=== PATIENT | female | born 1935 ===

== ENCOUNTER 2017-08-17 10:14 | Outpatient (CLI) | payer OTHER ==
[~2017-08-17 10:14] MED LIST: ANTIVERT12.5 MG; ATIVAN1 MG PO; BACLOFEN10 MG PO; COZAAR25 MG; DICLOFENAC SODI25 MG PO; FAMOTIDINE20 MG PO; GABAPENTIN600 MG PO; HUMALOG MIX 75/10 ML SUBCUTANEO; HUMULIN 70/30 PE3 ML; ISORDIL5 MG; LEVOTHYROXINE75 MCG PO; LIDODERM30 EA TP; LOTRISONE CREAM45 GM TP; Lantus 1000 U/10 ML SUBCUTANEO; NORVASC2.5 M1 PO; PLAVIX75 MG; PLETAL50 MG; PRAVACHOL10 MG; SYNTHROID50 MCG; TRAM1TAB98 PO; TRAMADOL HCL-AP1 TAB PO; [UNRECOGNIZED DRUG - CODE]
== END 2017-08-17 10:19 | disposition home or self-care (01) ==
LOC: RAD 10:14
DX: S09.90XA Unspecified injury of head, initial encounter (principal); M54.2 Cervicalgia; M54.5 Low back pain

== ENCOUNTER 2018-01-16 09:41 | Outpatient (CLI) | payer OTHER | END 2018-01-16 14:52 | disposition home or self-care (01) | LOC: RAD 09:41 | DX: I50.9 Heart failure, unspecified (principal) ==

== ENCOUNTER 2018-09-21 17:47 | Emergency (ER) | payer OTHER ==
[~2018-09-21] VITALS: Ht 160 cm; Wt 81.6 kg
== END 2018-09-22 11:16 | disposition designated cancer center or children's hospital (05) ==
LOC: ER 17:47 → CPU-OBS 18:19 → ER 09-22 11:16
DX: I44.2 Atrioventricular block, complete (principal); I11.9 Hypertensive heart disease without heart failure; I25.10 Atherosclerotic heart disease of native coronary artery without angina pectoris; E11.9 Type 2 diabetes mellitus without complications; R00.1 Bradycardia, unspecified; Z95.4 Presence of other heart-valve replacement

== ENCOUNTER → 2019-01-20 | Outpatient (CLI) | payer OTHER | END | disposition home or self-care (01) | LOC: RAD 09:38 | DX: M25.551 Pain in right hip (principal) ==

== ENCOUNTER 2019-01-31 08:31 | Outpatient (CLI) | payer OTHER | END 2019-01-31 08:40 | disposition home or self-care (01) | LOC: TOM 08:31 | DX: R10.9 Unspecified abdominal pain (principal) ==

== ENCOUNTER 2019-12-08 08:22 | Emergency (ER) | payer OTHER ==
[~2019-12-08] VITALS: Ht 162.6 cm; Wt 74.4 kg
[2019-12-08] MEDS ORDERED: HUMULIN 70100 UNIT/2 IJ (08:35)
[2019-12-08] MEDS ORDERED: LANTUS SOL100 UNIT/1 SQ (08:35)
== END 2019-12-08 12:30 | disposition home or self-care (01) ==
LOC: ER 08:22
DX: S50.11XA Contusion of right forearm, initial encounter (principal); S70.01XA Contusion of right hip, initial encounter; W18.39XA Other fall on same level, initial encounter; Y93.89 Activity, other specified; Y92.092 Bedroom in other non-institutional residence as the place of occurrence of the external cause; Y99.8 Other external cause status

== ENCOUNTER 2022-06-16 13:09 | Inpatient (IN) | payer OTHER ==
[~2022-06-16] VITALS: Ht 160 cm; Wt 104.3 kg
[~2022-06-16 13:09] MED LIST changes: +HUMULIN 70100 UNIT/2 IJ; +LANTUS SOL100 UNIT/1 SQ
--- NOTE | 2022-06-16 14:00 | NUR ---
SE LLAMA A PTE Y NO RESPONDE.
[2022-06-16] MEDS ORDERED: PLAVIX75 MG (14:27)
--- NOTE | 2022-06-16 14:29 | NUR ---
SE RECIBE FEMINA DE 86 ANOS ALERTA Y ORIENTADA X3. REFIERE CONGESTION NASAL, TOS PRODUCTIVA Y DOLOR DE GARGANTA HACE 4 SANTIAGO. SE MIDEN S/V Y SE UBICA EN JOI DE ESPERA PENDIENTE A EVALUACION MEDICA.
--- NOTE | 2022-06-16 19:11 | NUR ---
FEMINA ALERTA Y ORIENTADA X3 EVALUADA POR LA DRA PRINCE QUIEN ORDENA TX MEDICO. SE EDUCA A PTE Y REFIERE ENTENDER. SE COLECTAN MUESTRAS DE SHERICE BAJO MEDIDAS ASEPTICAS. PENDIENTE ABG'S.
--- NOTE | 2022-06-16 21:35 | NUR ---
SE INTENTA LLAMAR EN VARIAS OCASIONES A TERAPIA RESP PARA NOTIFICAR SOBRE TERAPIAS Y LOS MISMOS NO RESPONDEN.
[2022-06-27] MEDS ORDERED: COZAAR50 MG PO (14:43)
[2022-06-27] MEDS ORDERED: ZYVOX 600600 MG/300 IV (14:44)
[2022-06-27] MEDS ORDERED: CEFEPIME HCL1 GM IV (14:44)
[2022-06-27] MEDS ORDERED: XOPENEX0.63 MG/3 IH (14:45)
[2022-06-27] MEDS ORDERED: BENZONATATE200 M1 PO (14:55)
[2022-06-27] MEDS ORDERED: FUROSEMIDE20 MG PO (14:55)
[2022-06-27] MEDS ORDERED: INTESTINEX680 M1 PO (14:56)
[2022-06-27] MEDS ORDERED: FAMOTIDINE20 MG PO (14:56)
[2022-06-27] MEDS ORDERED: TUSSIN DM LIQU118 ML PO (14:56)
[2022-06-27] MEDS ORDERED: HUMALOG SUBCUTANEO (14:57)
[2022-06-27] MEDS ORDERED: Lantus 1000 UNITS/10 SUBCUTANEO (14:57)
== END 2022-06-27 21:37 | disposition home or self-care (01) | DRG 202 ==
LOC: ER 13:09 → MEDJ 23:55 → ER 06-17 00:39 → MEDJ 06-17 00:39
PROVIDERS: ADMIT Internal Medicine Cardiovascular Disease; ATTEND Internal Medicine Cardiovascular Disease
PROC: 4A12X4Z Monitoring of Cardiac Electrical Activity, External Approach (ICD-10-PCS; 2022-06-17)
PROC: 3E0F7SF Introduction of Other Gas into Respiratory Tract, Via Natural or Artificial Opening (ICD-10-PCS; 2022-06-17)
PROC: BW24ZZZ Computerized Tomography (CT Scan) of Chest and Abdomen (ICD-10-PCS; principal; 2022-06-20)
DX: J20.8 Acute bronchitis due to other specified organisms (principal); J15.7 Pneumonia due to Mycoplasma pneumoniae; I13.0 Hypertensive heart and chronic kidney disease with heart failure and stage 1 through stage 4 chronic kidney disease, or unspecified chronic kidney disease; I50.32 Chronic diastolic (congestive) heart failure; Z68.41 Body mass index [BMI] 40.0-44.9, adult; J90 Pleural effusion, not elsewhere classified; E11.22 Type 2 diabetes mellitus with diabetic chronic kidney disease; N18.9 Chronic kidney disease, unspecified; Z79.4 Long term (current) use of insulin; J84.10 Pulmonary fibrosis, unspecified; E66.09 Other obesity due to excess calories

== ENCOUNTER 2022-07-02 15:48 | Inpatient (IN) | payer OTHER ==
[~2022-07-02] VITALS: Ht 165.1 cm; Wt 71.2 kg
[~2022-07-02 15:48] MED LIST changes: +BENZONATATE200 M1 PO; +CEFEPIME HCL1 GM IV; +COZAAR50 MG PO; +FUROSEMIDE20 MG PO; +HUMALOG SUBCUTANEO; +INTESTINEX680 M1 PO; +Lantus 1000 UNITS/10 SUBCUTANEO; +TUSSIN DM LIQU118 ML PO; +XOPENEX0.63 MG/3 IH; +ZYVOX 600600 MG/300 IV
--- NOTE | 2022-07-02 15:59 | NUR ---
PACIENE ALERTA Y ORIENTADA X3. TRAIDA EN SILLA DE HUNTER. SE COLOCA EN K8 SE CONECTA A MONITOR CARDIACO Y OXIMETRIA. 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
--- NOTE | 2022-07-02 16:14 | NUR ---
PACIENE LLEGA CANALIZADA EN MANO DERECHA # 24 CUANDO SE RECIBE.
--- NOTE | 2022-07-02 17:03 | NUR ---
MS MARES ORIENTA PTE SOBRE TX MEDICO EL CUAL REFIERE ENTENDER.SE LE EXTRAEN MUESTRAS BAJO MEDIDAS ASEPTICAS,SE NOTIFICAN ABG A MS ANDERSON,SE NOTIFICA PLACA PENDIENTE,SE REALIZA EKG.SE CONECTA A MONITOR CARDIACO Y OXIMETRIA.
--- NOTE | 2022-07-02 18:45 | NUR ---
SE PASA PACIENTE A LA UNIDAD DE CHEST PAIN SE CONECTA A MONITOR CARDIACO Y OXIMETRIA DE PULSO. JOELLE DEAN HIJA DE LA PACIENTE SE EDUCA SOBRE EL TX MEDICO DE GARDNER HIJA Y SE CONTESTAN TODAS LAS PREGUNTAS. PACIENTE PENDIENTE A TERAPIAS.
--- NOTE | 2022-07-02 18:55 | NUR ---
PACIENTE TIENE COLOCADO UN VENTURY MASK AL 50%
--- NOTE | 2022-07-02 19:04 | NUR ---
SE NOTIFICA A CLAUDIA TERAPIAS PENDIENTES DE PACIENTE.
[2022-07-11] MEDS ORDERED: ALPRAZOLAM2 MG (13:02)
[2022-07-11] MEDS ORDERED: MAXIMUM D3325 MCG (13:02)
[2022-07-11] MEDS ORDERED: FAMOTIDINE20 MG (13:02)
[2022-07-11] MEDS ORDERED: FUROSEMIDE20 MG (13:02)
[2022-07-11] MEDS ORDERED: PRAVASTATIN SOD40 MG (13:02)
[2022-07-11] MEDS ORDERED: CILOSTAZOL100 MG (13:02)
[2022-07-22] MEDS ORDERED: FLUCONAZOLE100 MG PO (17:43)
[2022-07-22] MEDS ORDERED: FERROUS SULFAT325 M1 PO (17:43)
[2022-07-22] MEDS ORDERED: DEMECLOCYCLINE300 MG PO (17:46)
[2022-07-22] MEDS ORDERED: XOPENEX0.63 MG/3 IH (17:46)
[2022-07-22] MEDS ORDERED: HUMALOG100 UNIT/2 SUBCUTANEO (17:50)
[2022-07-22] MEDS ORDERED: HYDRALAZINE HC100 MG PO (17:55)
== END 2022-07-23 13:41 | disposition home or self-care (01) | DRG 197 ==
LOC: ER 15:48 → ICU 21:29 → ICU-2 21:29 → ICU 07-03 00:31 → MEDJ 07-14 17:45
PROVIDERS: ADMIT Internal Medicine Cardiovascular Disease; ATTEND Internal Medicine Cardiovascular Disease
PROC: 5A0955A Assistance with Respiratory Ventilation, Greater than 96 Consecutive Hours, High Flow/Velocity Cannula (ICD-10-PCS; 2022-07-03)
PROC: 02HV33Z Insertion of Infusion Device into Superior Vena Cava, Percutaneous Approach (ICD-10-PCS; principal; 2022-07-05)
PROC: 8E0ZXY6 Isolation (ICD-10-PCS; 2022-07-06)
PROC: 4A12X4Z Monitoring of Cardiac Electrical Activity, External Approach (ICD-10-PCS; 2022-07-13)
PROC: 30233N1 Transfusion of Nonautologous Red Blood Cells into Peripheral Vein, Percutaneous Approach (ICD-10-PCS; 2022-07-19)
DX: J84.89 Other specified interstitial pulmonary diseases (principal); E87.1 Hypo-osmolality and hyponatremia; Z16.12 Extended spectrum beta lactamase (ESBL) resistance; B96.1 Klebsiella pneumoniae [K. pneumoniae] as the cause of diseases classified elsewhere; I13.10 Hypertensive heart and chronic kidney disease without heart failure, with stage 1 through stage 4 chronic kidney disease, or unspecified chronic kidney disease; E11.22 Type 2 diabetes mellitus with diabetic chronic kidney disease; N18.9 Chronic kidney disease, unspecified; D63.8 Anemia in other chronic diseases classified elsewhere; I35.0 Nonrheumatic aortic (valve) stenosis; I27.21 Secondary pulmonary arterial hypertension; I25.10 Atherosclerotic heart disease of native coronary artery without angina pectoris; J22 Unspecified acute lower respiratory infection; E03.9 Hypothyroidism, unspecified; E11.8 Type 2 diabetes mellitus with unspecified complications; Z79.4 Long term (current) use of insulin; Z95.2 Presence of prosthetic heart valve

== ENCOUNTER 2022-08-04 09:41 | Outpatient (CLI) | payer OTHER ==
[~2022-08-04 09:41] MED LIST changes: +ALPRAZOLAM2 MG; +CILOSTAZOL100 MG; +DEMECLOCYCLINE300 MG PO; +FAMOTIDINE20 MG; +FERROUS SULFAT325 M1 PO; +FLUCONAZOLE100 MG PO; +FUROSEMIDE20 MG; +HUMALOG100 UNIT/2 SUBCUTANEO; +HYDRALAZINE HC100 MG PO; +MAXIMUM D3325 MCG; +PRAVASTATIN SOD40 MG
== END 2022-08-04 09:55 | disposition home or self-care (01) ==
LOC: LAB 09:41
PROVIDERS: ATTEND Internal Medicine Cardiovascular Disease
DX: N39.0 Urinary tract infection, site not specified (principal); E11.9 Type 2 diabetes mellitus without complications; E03.8 Other specified hypothyroidism; E78.00 Pure hypercholesterolemia, unspecified; E78.1 Pure hyperglyceridemia; I10 Essential (primary) hypertension; D64.9 Anemia, unspecified

== ENCOUNTER 2022-08-09 09:27 | Outpatient (CLI) | payer OTHER | END 2022-08-09 09:28 | disposition home or self-care (01) | LOC: LAB 09:27 | PROVIDERS: ATTEND Internal Medicine Cardiovascular Disease | DX: E78.1 Pure hyperglyceridemia (principal); E78.00 Pure hypercholesterolemia, unspecified ==

== ENCOUNTER 2022-08-17 10:27 | Outpatient (CLI) | payer OTHER | END 2022-08-17 10:28 | disposition home or self-care (01) | LOC: LAB 10:27 | PROVIDERS: ATTEND Internal Medicine Cardiovascular Disease | DX: E78.00 Pure hypercholesterolemia, unspecified (principal); E78.1 Pure hyperglyceridemia; I10 Essential (primary) hypertension ==

== ENCOUNTER 2022-08-24 10:58 | Outpatient (CLI) | payer OTHER | END 2022-08-24 11:00 | disposition home or self-care (01) | LOC: LAB 10:58 | PROVIDERS: ATTEND Internal Medicine Cardiovascular Disease | DX: E78.00 Pure hypercholesterolemia, unspecified (principal); E78.1 Pure hyperglyceridemia; E03.8 Other specified hypothyroidism; E11.9 Type 2 diabetes mellitus without complications; N39.0 Urinary tract infection, site not specified; I10 Essential (primary) hypertension ==

== ENCOUNTER 2022-09-07 11:08 | Outpatient (CLI) | payer OTHER | END 2022-09-07 11:55 | disposition home or self-care (01) | LOC: LAB 11:08 | PROVIDERS: ATTEND Internal Medicine Cardiovascular Disease | DX: I10 Essential (primary) hypertension (principal); E78.00 Pure hypercholesterolemia, unspecified; E78.1 Pure hyperglyceridemia ==

== ENCOUNTER → 2022-11-02 | Outpatient (CLI) | payer OTHER | END | disposition home or self-care (01) | LOC: RAD 11:52 | PROVIDERS: ATTEND Internal Medicine Nephrology | DX: E87.70 Fluid overload, unspecified (principal); J18.8 Other pneumonia, unspecified organism ==

== ENCOUNTER 2022-11-04 10:53 | Inpatient (IN) | payer OTHER ==
[~2022-11-04] VITALS: Ht 165.1 cm; Wt 77.1 kg
[2022-11-04] MEDS ORDERED: GRALISE600 MG PO (11:10)
[2022-11-04] MEDS ORDERED: SLOW FE142 MG (11:10)
[2022-11-04] MEDS ORDERED: PRE PROTEIN 2030 ML (11:11)
[2022-11-04] MEDS ORDERED: ECOTRIN81 MG (11:11)
[2022-11-04] MEDS ORDERED: SERTRALINE20 MG/1 ML (11:11)
[2022-11-04] MEDS ORDERED: PRAVASTATIN SOD40 MG (11:11)
[2022-11-06] MEDS ORDERED: RESTORIL30 MG PO (14:19)
[2022-11-06] MEDS ORDERED: METOLAZONE2.5 MG (14:19)
[2022-11-06] MEDS ORDERED: ALPRAZOLAM2 MG (14:20)
[2022-11-17] MEDS ORDERED: ALBUTEROL2.5 MG/3 M IH (10:04)
[2022-11-17] MEDS ORDERED: DEMECLOCYCLINE300 MG PO (10:04)
[2022-11-17] MEDS ORDERED: RETACRIT10000 UNIT SUBCUTANEO (10:05)
[2022-11-17] MEDS ORDERED: ISOSORBIDE DINIT5 MG PO (10:06)
[2022-11-17] MEDS ORDERED: SERTRALINE HCL25 MG PO (10:07)
[2022-11-17] MEDS ORDERED: FUROSEMIDE20 MG PO (10:08)
[2022-11-17] MEDS ORDERED: PRE PROTEIN1 EACH PO (10:08)
[2022-11-17] MEDS ORDERED: SYNTHROID100 MCG PO (10:09)
[2022-11-17] MEDS ORDERED: HUMALOG100 UNIT/1 SUBCUTANEO (10:09)
[2022-11-17] MEDS ORDERED: VITAMIN B-121000 MCG PO (10:10)
[2022-11-17] MEDS ORDERED: MEGESTROL ACETA20 MG PO (10:10)
[2022-11-17] MEDS ORDERED: PYRIDOXINE HCL100 MG PO (10:10)
[2022-11-17] MEDS ORDERED: FOLIC ACID1 MG PO (10:10)
[2022-11-17] MEDS ORDERED: B Complex PO (10:11)
[2022-11-17] MEDS ORDERED: ERAXIS (WATER100 MG IV (10:19)
[2022-11-17] MEDS ORDERED: MEROPENEM500 MG IV (10:19)
== END 2022-11-17 14:44 | disposition home or self-care (01) | DRG 291 ==
LOC: ER 10:53 → ICU-2 15:52 → MEDJ 11-11 21:22
PROVIDERS: ADMIT Internal Medicine Cardiovascular Disease; ATTEND Internal Medicine Cardiovascular Disease
PROC: 4A12X4Z Monitoring of Cardiac Electrical Activity, External Approach (ICD-10-PCS; principal; 2022-11-04)
PROC: B246ZZZ Ultrasonography of Right and Left Heart (ICD-10-PCS; 2022-11-04)
PROC: 3E0F7GC Introduction of Other Therapeutic Substance into Respiratory Tract, Via Natural or Artificial Opening (ICD-10-PCS; 2022-11-04)
PROC: 5A0955A Assistance with Respiratory Ventilation, Greater than 96 Consecutive Hours, High Flow/Velocity Cannula (ICD-10-PCS; 2022-11-04)
PROC: 02HV33Z Insertion of Infusion Device into Superior Vena Cava, Percutaneous Approach (ICD-10-PCS; 2022-11-05)
PROC: 8E0ZXY6 Isolation (ICD-10-PCS; 2022-11-07)
PROC: 0W9B3ZZ Drainage of Left Pleural Cavity, Percutaneous Approach (ICD-10-PCS; 2022-11-08)
DX: I13.0 Hypertensive heart and chronic kidney disease with heart failure and stage 1 through stage 4 chronic kidney disease, or unspecified chronic kidney disease (principal); I50.33 Acute on chronic diastolic (congestive) heart failure; B37.49 Other urogenital candidiasis; J91.8 Pleural effusion in other conditions classified elsewhere; E22.2 Syndrome of inappropriate secretion of antidiuretic hormone; N18.4 Chronic kidney disease, stage 4 (severe); N17.8 Other acute kidney failure; I50.82 Biventricular heart failure; E11.22 Type 2 diabetes mellitus with diabetic chronic kidney disease; D63.1 Anemia in chronic kidney disease; I48.0 Paroxysmal atrial fibrillation; E03.9 Hypothyroidism, unspecified; B96.20 Unspecified Escherichia coli [E. coli] as the cause of diseases classified elsewhere; I27.20 Pulmonary hypertension, unspecified; E88.09 Other disorders of plasma-protein metabolism, not elsewhere classified; E77.8 Other disorders of glycoprotein metabolism; I25.10 Atherosclerotic heart disease of native coronary artery without angina pectoris; Z79.4 Long term (current) use of insulin; Z95.1 Presence of aortocoronary bypass graft; Z20.822 Contact with and (suspected) exposure to COVID-19

== ENCOUNTER 2022-12-16 13:47 | Inpatient (IN) | payer OTHER ==
[~2022-12-16] VITALS: Ht 170.2 cm; Wt 99.8 kg
[~2022-12-16 13:47] MED LIST changes: +ALBUTEROL2.5 MG/3 M IH; +B Complex PO; +ECOTRIN81 MG; +ERAXIS (WATER100 MG IV; +FOLIC ACID1 MG PO; +GRALISE600 MG PO; +HUMALOG100 UNIT/1 SUBCUTANEO; +ISOSORBIDE DINIT5 MG PO; +MEGESTROL ACETA20 MG PO; +MEROPENEM500 MG IV; +METOLAZONE2.5 MG; +PRE PROTEIN 2030 ML; +PRE PROTEIN1 EACH PO; +PYRIDOXINE HCL100 MG PO; +RESTORIL30 MG PO; +RETACRIT10000 UNIT SUBCUTANEO; +SERTRALINE HCL25 MG PO; +SERTRALINE20 MG/1 ML; +SLOW FE142 MG; +SYNTHROID100 MCG PO; +VITAMIN B-121000 MCG PO
[2022-12-18] MEDS ORDERED: ISOSORBIDE MONO30 M2 (08:31)
[2022-12-18] MEDS ORDERED: NITROGLYCERIN0.4 MG (08:31)
[2022-12-18] MEDS ORDERED: STRESS B-COMPL1 EACH (08:31)
[2022-12-18] MEDS ORDERED: VITAMIN B-121000 MC4 (08:32)
[2022-12-18] MEDS ORDERED: METOLAZONE2.5 MG (08:32)
[2022-12-18] MEDS ORDERED: LOSARTAN POTASS25 MG (08:32)
[2022-12-18] MEDS ORDERED: B COMPLEX1 EACH (08:33)
[2022-12-29] MEDS ORDERED: ERAXIS (WATER100 MG IV (21:46)
[2022-12-29] MEDS ORDERED: ISOSORBIDE DINIT5 MG PO (21:46)
[2022-12-29] MEDS ORDERED: IPRAT-ALBUT 0.5-3 ML IH (21:46)
[2022-12-29] MEDS ORDERED: HUMALOG100 UNIT/1 SUBCUTANEO (21:46)
[2022-12-29] MEDS ORDERED: SLOW FE142 MG PO (21:46)
[2022-12-29] MEDS ORDERED: ALBUTEROL2.5 MG/3 M IH (21:46)
[2022-12-29] MEDS ORDERED: LEVOTHYROXINE75 MCG PO (21:46)
[2022-12-29] MEDS ORDERED: MEGESTROL ACETA20 MG PO (21:46)
[2022-12-29] MEDS ORDERED: DEMECLOCYCLINE300 MG PO (21:46)
[2022-12-29] MEDS ORDERED: RETACRIT10000 UNIT SUBCUTANEO (21:46)
[2022-12-29] MEDS ORDERED: BUMETANIDE1 MG PO (21:46)
== END 2022-12-30 13:51 | disposition home or self-care (01) | DRG 291 ==
LOC: ER 13:47 → SEC-K 16:21 → ICU 16:21 → MEDJ 17:38 → ICU 19:26 → MEDJ 12-20 22:18
PROVIDERS: ADMIT Internal Medicine Cardiovascular Disease; ATTEND Internal Medicine Cardiovascular Disease
PROC: 4A12X4Z Monitoring of Cardiac Electrical Activity, External Approach (ICD-10-PCS; principal; 2022-12-16)
PROC: 3E0F7SF Introduction of Other Gas into Respiratory Tract, Via Natural or Artificial Opening (ICD-10-PCS; 2022-12-16)
PROC: 3E0F7GC Introduction of Other Therapeutic Substance into Respiratory Tract, Via Natural or Artificial Opening (ICD-10-PCS; 2022-12-16)
PROC: B246ZZZ Ultrasonography of Right and Left Heart (ICD-10-PCS; 2022-12-17)
PROC: 02HV33Z Insertion of Infusion Device into Superior Vena Cava, Percutaneous Approach (ICD-10-PCS; 2022-12-18)
PROC: 8E0ZXY6 Isolation (ICD-10-PCS; 2022-12-19)
DX: I13.0 Hypertensive heart and chronic kidney disease with heart failure and stage 1 through stage 4 chronic kidney disease, or unspecified chronic kidney disease (principal); I50.33 Acute on chronic diastolic (congestive) heart failure; J96.00 Acute respiratory failure, unspecified whether with hypoxia or hypercapnia; J91.8 Pleural effusion in other conditions classified elsewhere; B37.49 Other urogenital candidiasis; N17.8 Other acute kidney failure; N18.4 Chronic kidney disease, stage 4 (severe); E22.2 Syndrome of inappropriate secretion of antidiuretic hormone; I50.84 End stage heart failure; I42.9 Cardiomyopathy, unspecified; E87.5 Hyperkalemia; D69.6 Thrombocytopenia, unspecified; I25.10 Atherosclerotic heart disease of native coronary artery without angina pectoris; I48.91 Unspecified atrial fibrillation; B96.29 Other Escherichia coli [E. coli] as the cause of diseases classified elsewhere; I27.20 Pulmonary hypertension, unspecified; E03.9 Hypothyroidism, unspecified; E11.22 Type 2 diabetes mellitus with diabetic chronic kidney disease; Z79.4 Long term (current) use of insulin; Z95.1 Presence of aortocoronary bypass graft; Z66 Do not resuscitate